=== PATIENT | female | born 1965 ===

== ENCOUNTER 2025-01-10 07:00 | Day surgery (SDC) | payer OTHER ==
[2025-01-05 08:18] VITALS: BP 144/85
[~2025-01-10] VITALS: Ht 152.4 cm; Wt 84.4 kg
[~2025-01-10 07:00] MED LIST: ACTICAL SOFTGE1 EACH PO; AMLODIPINE-OLM1 EAC2 PO; COZAAR50 MG PO; EZALLOR SPRINKL20 MG PO; GABAPENTIN300 MG; VENLAFAXINE HC150 MG PO; VITAMIN D-40010 MCG; VITAMIN E400 UNI7 PO
[2025-01-10] MEDS ORDERED: LIDOCAINE HCL 1% 20 ML VIAL IJ ONE ×2 (08:00→08:01)
[2025-01-10] MEDS ORDERED: CEFAZOLIN SODIUM 1,000 MG VIAL ONE (08:07)
[2025-01-10] MEDS ORDERED: BUPIVACAINE HCL 30 ML VIAL IJ ONE (08:45)
[2025-01-10] MEDS ORDERED: ISOPROPYL ALCOHOL 30 ML OUNCE TOP ONE (08:45)
== END 2025-01-10 10:40 | disposition home or self-care (01) ==
LOC: CIR.AMB 07:00
PROVIDERS: ATTEND Surgery Surgery of the Hand
DX: M65.842 Other synovitis and tenosynovitis, left hand (principal)